=== PATIENT | female | born 1950 | race African-American/Black ===

== ENCOUNTER 2024-08-09 10:56 | Emergency (ER) | payer MEDICARE ==
[~2024-08-09] VITALS: Ht 170.2 cm; Wt 250.0 kg
[2024-08-09 11:07] VITALS: O2SAT 97
[2024-08-09] MEDS ORDERED: BO1 TP (16:50)
[2024-08-09 16:55] VITALS: BP 136/82; PULSE 65; RESP 12; TEMP 36.55848; O2SAT 99
== END 2024-08-09 17:00 | disposition home or self-care (01) ==
LOC: ER 11:09
DX: S60.222A Contusion of left hand, initial encounter (principal); S50.812A Abrasion of left forearm, initial encounter; S80.212A Abrasion, left knee, initial encounter; R51.9 Headache, unspecified; Z98.890 Other specified postprocedural states; V49.9XXA Car occupant (driver) (passenger) injured in unspecified traffic accident, initial encounter; Y93.89 Activity, other specified; Y92.89 Other specified places as the place of occurrence of the external cause; Y99.8 Other external cause status
CPT/HCPCS: 71045; 73030; 73090; 73120; 73560; 99284